=== PATIENT | female | born 1995 | race Hispanic/Latino ===

== ENCOUNTER 2020-12-31 14:00 | Inpatient (IN) | payer OTHER ==
[2020-12-31 14:35] VITALS: BMI 45.1
[2020-12-31] MEDS ORDERED: Bicitra 30 ML UDCUP PO PRN (14:38)
[2020-12-31] MEDS ORDERED: hydrALAZINE 20 MG/ML VIAL SLOW IVP PRN ×2 (14:38→19:52)
[2020-12-31] MEDS ORDERED: Ondansetron PF 4 MG/2 ML Vial IVP PRN ×3 (14:38→19:52)
[2020-12-31] MEDS ORDERED: Famotidine/PF 20 mg/2ml Vial SLOW IVP PRN (14:38)
[2020-12-31] MEDS ORDERED: Promethazine HCl 25 MG/ML VIAL IM PRN ×3 (14:38→19:52)
[2020-12-31] MEDS ORDERED: Penicillin G Potassium 5 MILL.UNITS in Sodium Chloride 0.9% 100 ML IVPB SCH (14:45)
[2020-12-31] MEDS ORDERED: Lactated Ringer's 1,000 ML IV SCH (14:45)
[2020-12-31] MEDS ORDERED: Azithromycin 500 MG in Sodium Chloride 0.9% 250 ML 250 ML IVPB SCH (14:45)
[2020-12-31] MEDS ORDERED: CEFAZOLIN 2 GM in Premix Bag 1 BAG IVPB SCH (14:45)
[2020-12-31] MEDS ORDERED: PHENYLEPHRINE-NS 100 MCG/ML 10 ML SYRINGE ONE (15:30)
[2020-12-31] MEDS ORDERED: Phenylephrine 10 MG/ML VIAL ONE (15:30)
[2020-12-31] MEDS ORDERED: Oxytocin 10 UNITS/ML VIAL ONE (15:30)
[2020-12-31] MEDS ORDERED: Morphine PF 10 MG/10 ML VIAL ONE (15:30)
[2020-12-31 16:03] LABS: Hemoglobin 11.7 g/dL (12.0-15.5); Mean Corpuscular HGB CONC 32.3 g/dL (32.0-36.0); Mean Corpuscular Hemoglobin 27.4 pg (27.0-33.0); Mean Corpuscular Volume 84.8 fl (81.6-98.3); Mean Platelet Volume 9.5 fl (7.4-10.4); Platelet Count 384 10x3/uL (150-450); RBC Distribution Width 13.2 % (11.5-14.5); Red Blood Cell (RBC) Count 4.27 10x6/uL (3.90-5.03); White Blood Cell (WBC) Count 9.8 10x3/uL (3.5-10.5)
[2020-12-31 16:34] LABS: Syphilis Antibody Nonreactive (Nonreactive); Syphilis Antibody Index 0.03 S/CO (<1.00 Non-Reactive)
[2020-12-31 16:35] LABS: Hep B Surf Ag Non-Reactive S/CO (NonReactive)
[2020-12-31 16:37] LABS: HBSAg Index 0.13 S/CO (0-0.99)
[2020-12-31] MEDS ORDERED: Ketorolac Tromethamine 30 MG/ML VIAL ONE (17:25)
[2020-12-31] MEDS ORDERED: Ondansetron HCl/PF 4 MG/2 ML Vial IVP PRN (17:31)
[2020-12-31] MEDS ORDERED: Eucerin (Mineral Oil/Petrolatum,White) 30 gm Jar TOP PRN (17:31)
[2020-12-31] MEDS ORDERED: Naloxone HCl 0.4 mg/ml Vial IV PRN (17:31)
[2020-12-31] MEDS ORDERED: L&D-Morphine 4 MG/ML VIAL SLOW IVP PRN (17:31)
[2020-12-31] MEDS ORDERED: Meperidine HCl/PF 25 MG/ML VIAL SLOW IVP PRN (17:31)
[2020-12-31] MEDS ORDERED: Naloxone HCl 0.4 mg/ml Vial IVP PRN ×2 (17:31)
[2020-12-31] MEDS ORDERED: HYDROmorphone 2 MG/ML VIAL SLOW IVP PRN (17:31)
[2020-12-31] MEDS ORDERED: Ketorolac Tromethamine 30 MG/ML VIAL IVP PRN (17:31)
[2020-12-31] MEDS ORDERED: diphenhydrAMINE 50 MG/ML VIAL IVP PRN (17:31)
[2020-12-31] MEDS ORDERED: Promethazine HCl 25 MG SUPP PR PRN (17:31)
[2020-12-31] MEDS ORDERED: Ketorolac Tromethamine 30 MG/ML VIAL IVP SCH (17:45)
[2020-12-31] MEDS ORDERED: Communication Order-Pharmacy FS SCH (17:45)
[2020-12-31] MEDS ORDERED: Lanolin Ointment 7 GM TUBE TOP PRN (19:52)
[2020-12-31] MEDS ORDERED: Bisacodyl 10 MG SUPP PR PRN (19:52)
[2020-12-31] MEDS ORDERED: diphenhydrAMINE 25 MG CAP PO PRN (19:52)
[2020-12-31] MEDS ORDERED: Acetaminophen 500 MG TAB PO PRN (19:52)
[2020-12-31] MEDS ORDERED: Simethicone Chewable 80 MG TAB PO PRN (19:52)
[2020-12-31] MEDS ORDERED: Ferrous Sulfate 325 MG TAB PO SCH (20:30)
[2020-12-31] MEDS: Docusate Calcium (SURFAK) 240 MG CAP PO SCH (20:42)
[2021-01-01] MEDS: Ketorolac Tromethamine 30 MG/ML VIAL IVP SCH ×3 (00:14→11:43)
[2021-01-01 06:56] LABS: Hemoglobin 9.9 g/dL (12.0-15.5); Mean Corpuscular HGB CONC 33.1 g/dL (32.0-36.0); Mean Corpuscular Volume 84.5 fl (81.6-98.3); Mean Platelet Volume 9.5 fl (7.4-10.4); Platelet Count 320 10x3/uL (150-450); Red Blood Cell (RBC) Count 3.54 10x6/uL (3.90-5.03); White Blood Cell (WBC) Count 9.4 10x3/uL (3.5-10.5)
[2021-01-01] MEDS: Prenatal Vitamin 1 TAB PO SCH (08:42)
[2021-01-01] MEDS: Ferrous Sulfate 325 MG TAB PO SCH ×2 (08:42→18:32)
[2021-01-01] MEDS: Docusate Calcium (SURFAK) 240 MG CAP PO SCH ×2 (08:42→20:56)
[2021-01-01] MEDS ORDERED: Adacel (T-DAP) 0.5 ML SYRINGE IM ONE (09:00)
[2021-01-01] MEDS: HYDROcodone/Acetaminophen 5/325 mg Tablet PO PRN ×2 (11:43→18:32)
[2021-01-01 14:08] LABS: SARS-CoV-2 PCR by NAA Not Detected (NotDetected)
[2021-01-01] MEDS: Ibuprofen 800 MG TAB PO SCH (20:55)
[2021-01-02] MEDS: HYDROcodone/Acetaminophen 5/325 mg Tablet PO PRN ×3 (04:49→16:56)
[2021-01-02] MEDS: Ibuprofen 800 MG TAB PO SCH ×2 (04:53→14:19)
[2021-01-02] MEDS: Prenatal Vitamin 1 TAB PO SCH (09:20)
[2021-01-02] MEDS: Docusate Calcium (SURFAK) 240 MG CAP PO SCH (09:20)
[2021-01-02] MEDS: Ferrous Sulfate 325 MG TAB PO SCH ×2 (09:32→17:00)
[2021-01-02 18:03] VITALS: BP 126/57; TEMP 99
== END 2021-01-02 17:45 | disposition home or self-care (01) | DRG 788 ==
LOC: CSHLD/OP 14:00 → CSHLD 15:06 → CSHPP 19:51
PROVIDERS: ADMIT Family Medicine; ATTEND Family Medicine
PROC: 10D00Z1 Extraction of Products of Conception, Low, Open Approach (ICD-10-PCS; principal; 2020-12-31)
PROC: 4A0HXCZ Measurement of Products of Conception, Cardiac Rate, External Approach (ICD-10-PCS; 2020-12-31)
DX: O34.211 Maternal care for low transverse scar from previous cesarean delivery (principal); Z3A.37 37 weeks gestation of pregnancy; Z37.0 Single live birth; O99.824 Streptococcus B carrier state complicating childbirth; O76 Abnormality in fetal heart rate and rhythm complicating labor and delivery; O75.82 Onset (spontaneous) of labor after 37 completed weeks of gestation but before 39 completed weeks gestation, with delivery by (planned) cesarean section; O42.02 Full-term premature rupture of membranes, onset of labor within 24 hours of rupture
CPT/HCPCS: 36415; 51702; 85027; 86780; 86850; 86900; 86901; 87340; 87635; 99285; J1885; J2274; J2370; J2540; J3490; U0003; U0005